=== PATIENT | female | born 1935 | race Caucasian/White ===

== ENCOUNTER 2016-12-24 15:17 | Inpatient (IN) | payer OTHER ==
[~2016-12-24] VITALS: Ht 162.6 cm; Wt 75.5 kg
[~2016-12-24 15:17] MED LIST: DIOVAN160 MG PO; ECOTRIN325 MG PO; INNOPRAN XL80 MG PO; NORVASC2.5 MG PO; TYLENOL WITH C1 EACH PO; VIACTIV SOFT C1 EACH PO; VITAMIN E400 UNIT PO; ZOLOFT25 MG PO
[2016-12-24 16:02] LABS: CREATININE 0.8 mg/dL (0.6-1.3); POTASSIUM 5.4 mEq/L (3.7-5.4)
[2016-12-24 16:20] LABS: EOSINOPHIL (%) 0.2 % (0-5); HEMATOCRIT 47.6 % (36.0-46.0); IMMATURE GRANULOCYTE (%) 0.8 % (0.0-0.7); IMMATURE GRANULOCYTE COUNT 0.2 K/uL; INSTRUMENT ABS NEUTROPHIL CT 19.8 K/uL; LYMPHOCYTE COUNT 1.4 K/uL (1.0-2.8); MCH 29.3 PG (29.0-34.0); MCHC 32.1 G/DL (30.0-36.0); MEAN PLAT.VOLUME 10.7 uM^3 (9.5-12.4); MONOCYTE COUNT 1.1 K/uL (0-0.8); NEUTROPHIL (%) 87.5 % (45-76); NEUTROPHIL COUNT 19.8 K/uL (1.8-6.4); NRBC (%) 0.1 /100 WBC (0-0); PLATELET COUNT 187 K/uL (156-360); RBC DIS.WIDTH-CV 13.2 % (11.8-14.6); RED BLOOD COUNT 5.23 M/uL (3.80-5.20); WHITE BLOOD COUNT 22.6 K/uL (4.1-10.2)
[2016-12-24 16:21] LABS: POINT-OF-CARE METER ID UU13113702
[2016-12-24 16:31] LABS: CHLORIDE 108 mEq/L (99-109); SODIUM 141 mEq/L (136-147)
[2016-12-24 16:33] LABS: BASE EXCESS -1.9 mEq/L (-3 to +3); BICARBONATE 24.7 mEq/L (22-26); CARBOXY HGB 2.2 % (0-5); METHEMOGLOBIN 1.4 % (0-1.5); PCO2 48 mm Hg (35-45); PO2 168 mm Hg (80-100); pH 7.32 (7.35-7.45)
[2016-12-24 16:33] LABS: GLUCOSE 139 mg/dL (70-99)
[2016-12-24 16:34] LABS: COMMENTS - BLOOD GASES A+C+; DEVICE 840; FI02 60 %; MODE SPONT; SITE RR; TOTAL RESP RATE 40 resp/min
[2016-12-24 16:34] LABS: ANION GAP 13 MEQ/L (2-14)
[2016-12-24 16:35] LABS: TOTAL BILIRUBIN 1.2 mg/dL (0.0-1.0)
[2016-12-24 16:35] LABS: PEEP 5 CM/H20; PRES. SUPPORT 12 CM/H2O
[2016-12-24 16:37] LABS: ALKALINE PHOSPHATASE 85 IU/L (3-129); GFR ESTIMATE (CALCULATED) > 59 mL/min/
[2016-12-24 16:38] LABS: UREA NITROGEN (BUN) 19 mg/dL (9-23)
[2016-12-24 16:41] LABS: TROP-I INTERPRETATION INDETERMINATE; TROPONIN-I 0.58 ng/mL (0.0-0.30)
[2016-12-24 16:45] LABS: POTASSIUM ND mEq/L (3.7-5.4)
[2016-12-24 17:21] LABS: POTASSIUM 4.4 mEq/L (3.7-5.4)
[2016-12-24 17:29] LABS: NO-CHARGE AST (GOT) 38 IU/L (2-34)
[2016-12-24 19:09] LABS: BASE EXCESS -1.5 mEq/L (-3 to +3); BICARBONATE 24.3 mEq/L (22-26); CARBOXY HGB 2.4 % (0-5); COMMENTS - BLOOD GASES A+C+; DEVICE NC; METHEMOGLOBIN 1.3 % (0-1.5); O2 FLOW 4 L/MIN; PCO2 44 mm Hg (35-45); PO2 74 mm Hg (80-100); SITE LR; TOTAL RESP RATE 30 resp/min; pH 7.35 (7.35-7.45)
[2016-12-24 20:09] LABS: ADD MIUA? YES; BILIRUBIN NEGATIVE; BLOOD MODERATE; COLOR YELLOW ((YELLOW)); GLUCOSE (STRIP) 50; KETONES 5; LEUKOCYTES NEGATIVE; NITRITE NEGATIVE; PROTEIN (STRIP) 100; SPECIFIC GRAVITY 1.011 (1.000-1.030); UROBILINOGEN 0.2 MG/DL (0.2-1.0)
[2016-12-24 20:16] LABS: BACTERIA NONE SEEN /HPF; EPITHELIAL CELLS RARE /HPF; GRANULAR CASTS 0-5 /LPF; MUCUS TRACE /LPF; RED BLOOD CELLS 15-20 /HPF (0-5); WHITE BLOOD CELLS 0-5 /HPF (0-5)
[2016-12-24 21:00] LABS: TROP-I INTERPRETATION POSITIVE; TROPONIN-I 1.45 ng/mL (0.0-0.30)
[2016-12-24 22:03] LABS: INTER. NORMALIZED RATIO 1.2; PROTHROMBIN TIME 12.9 SEC (10.2-12.9)
[2016-12-24 23:24] VITALS: BP 141/81
[2016-12-25] VITALS (23 sets, daily range): BP systolic 127–164; BP diastolic 52–107
[2016-12-25 00:44] LABS: METH RESISTANT S AUREUS PCR NEGATIVE (NEGATIVE)
[2016-12-25 00:48] LABS: PROBE CHECK PASS; SPECIMEN PROCESSING CONTROL PASS
[2016-12-25 05:29] LABS: BASE EXCESS -1.3 mEq/L (-3 to +3); BICARBONATE 23.7 mEq/L (22-26); CARBOXY HGB 2.4 % (0-5); COMMENTS - BLOOD GASES C+A+; DEVICE HHFNC; FI02 30 %; METHEMOGLOBIN 1.8 % (0-1.5); O2 FLOW 45 L/MIN; PCO2 40 mm Hg (35-45); PO2 103 mm Hg (80-100); SITE LR; TOTAL RESP RATE 28 resp/min; pH 7.38 (7.35-7.45)
[2016-12-25 05:33] LABS: INTER. NORMALIZED RATIO 1.4; PROTHROMBIN TIME 15.2 SEC (10.2-12.9)
[2016-12-25 05:52] LABS: PTT ND SEC (25-37)
[2016-12-25 06:05] LABS: TROP-I INTERPRETATION POSITIVE; TROPONIN-I 1.15 ng/mL (0.0-0.30)
[2016-12-25 06:06] LABS: HEMATOCRIT 40.9 % (36.0-46.0); MCH 29.8 PG (29.0-34.0); MCHC 32.8 G/DL (30.0-36.0); MCV 90.9 FL (83-99); NRBC (%) 0.1 /100 WBC (0-0); RBC DIS.WIDTH-CV 13.5 % (11.8-14.6); RBC DIS.WIDTH-SD 44.6 % (39-53); WHITE BLOOD COUNT 15.2 K/uL (4.1-10.2)
[2016-12-25 06:39] LABS: MEAN PLAT.VOLUME 10.3 uM^3 (9.5-12.4); PLAT.SUFFICIENCY DECREASED
[2016-12-25 06:46] LABS: PLATELET COUNT 129 K/uL (156-360)
[2016-12-25 07:34] LABS: ANION GAP 13 MEQ/L (2-14); CHLORIDE 107 MEQ/L (99-109); GFR ESTIMATE (CALCULATED) > 59 mL/min/; GLUCOSE 157 mg/dL (70-99); POTASSIUM 4.1 MEQ/L (3.7-5.4); SAMPLE HEMOLYSIS CHECK 0; SAMPLE ICTERIC CHECK 0; SAMPLE LIPEMIA CHECK 0; SODIUM 142 MEQ/L (136-147); UREA NITROGEN (BUN) 27 mg/dL (9-23)
[2016-12-25] MEDS ORDERED: SERTRALINE HCL25 MG PO (13:16)
[2016-12-25] MEDS ORDERED: VALSARTAN160 MG PO (13:16)
[2016-12-25] MEDS ORDERED: PROPRANOLOL HCL80 MG PO (13:16)
[2016-12-25] MEDS ORDERED: AMLODIPINE BES2.5 MG PO (13:16)
[2016-12-25] MEDS ORDERED: ATORVASTATIN CA20 MG PO (13:19)
[2016-12-25] MEDS ORDERED: VITAMIN E400 UNIT PO (13:20)
[2016-12-25] MEDS ORDERED: VIACTIV SOFT C1 EACH PO (13:20)
[2016-12-25] MEDS ORDERED: ECOTRIN325 MG PO (13:20)
[2016-12-25] MEDS ORDERED: ULTIMATE PROBI1 EACH PO (13:21)
[2016-12-25] MEDS ORDERED: SUPER B COMPLE1 EAC2 PO (13:21)
[2016-12-26] VITALS (23 sets, daily range): BP systolic 89–179; BP diastolic 49–146
[2016-12-26 07:38] LABS: MCH 30.3 PG (29.0-34.0); MCHC 33.7 G/DL (30.0-36.0); MEAN PLAT.VOLUME 11.2 uM^3 (9.5-12.4); PLATELET COUNT 117 K/uL (156-360); RBC DIS.WIDTH-CV 13.4 % (11.8-14.6); RBC DIS.WIDTH-SD 43.8 % (39-53); RED BLOOD COUNT 3.89 M/uL (3.80-5.20); WHITE BLOOD COUNT 18.7 K/uL (4.1-10.2)
[2016-12-26 07:47] LABS: INTER. NORMALIZED RATIO 1.2; PROTHROMBIN TIME 12.8 SEC (10.2-12.9)
[2016-12-26 07:50] LABS: PTT 74.5 SEC (25-37)
[2016-12-26 20:29] LABS: BASE EXCESS 3.3 mEq/L (-3 to +3); BICARBONATE 26.8 mEq/L (22-26); CARBOXY HGB 2.7 % (0-5); COMMENTS - BLOOD GASES A+C+; DEVICE NC; METHEMOGLOBIN 2.1 % (0-1.5); O2 FLOW 2 L/MIN; PCO2 36 mm Hg (35-45); PO2 52 mm Hg (80-100); SITE LR; TOTAL RESP RATE 24 resp/min; pH 7.48 (7.35-7.45)
[2016-12-26 20:49] LABS: ANION GAP 8 MEQ/L (2-14); CHLORIDE 104 MEQ/L (99-109); POTASSIUM 3.8 MEQ/L (3.7-5.4); SAMPLE HEMOLYSIS CHECK 0; SAMPLE ICTERIC CHECK 0; SAMPLE LIPEMIA CHECK 0; SODIUM 139 MEQ/L (136-147)
[2016-12-26 21:02] LABS: GFR ESTIMATE (CALCULATED) > 59 mL/min/; GLUCOSE 107 mg/dL (70-99); UREA NITROGEN (BUN) 15 mg/dL (9-23)
[2016-12-27] VITALS (15 sets, daily range): BP systolic 126–165; BP diastolic 66–88
[2016-12-28] VITALS: BP 137/67
[2016-12-28 04:24] VITALS: BP 132/67
[2016-12-28 07:46] VITALS: BP 141/66
[2016-12-28 11:28] VITALS: BP 166/78
[2016-12-28 19:53] VITALS: BP 142/75
[2016-12-29 00:50] VITALS: BP 164/77
[2016-12-29 03:40] VITALS: BP 179/81
[2016-12-29 05:59] LABS: HEMATOCRIT 37.8 % (36.0-46.0); MCH 28.6 PG (29.0-34.0); MCHC 32.3 G/DL (30.0-36.0); MCV 88.5 FL (83-99); MEAN PLAT.VOLUME 10.7 uM^3 (9.5-12.4); PLATELET COUNT 140 K/uL (156-360); RBC DIS.WIDTH-SD 41.7 % (39-53); RED BLOOD COUNT 4.27 M/uL (3.80-5.20); WHITE BLOOD COUNT 11.1 K/uL (4.1-10.2)
[2016-12-29 08:53] VITALS: BP 158/74
[2016-12-29 21:09] VITALS: BP 147/77
[2016-12-30] VITALS (7 sets, daily range): BP systolic 130–173; BP diastolic 66–86
[2016-12-30 06:08] LABS: EOSINOPHIL (%) 2.3 % (0-5); EOSINOPHIL COUNT 0.3 K/uL (0-0.3); IMMATURE GRANULOCYTE (%) 1.1 % (0.0-0.7); IMMATURE GRANULOCYTE COUNT 0.1 K/uL; INSTRUMENT ABS NEUTROPHIL CT 8.6 K/uL; LYMPHOCYTE COUNT 1.6 K/uL (1.0-2.8); MCHC 33.7 G/DL (30.0-36.0); MCV 89.1 FL (83-99); MEAN PLAT.VOLUME 10.9 uM^3 (9.5-12.4); MONOCYTE (%) 8.5 % (3-12); NEUTROPHIL (%) 74.1 % (45-76); NEUTROPHIL COUNT 8.6 K/uL (1.8-6.4); PLATELET COUNT 173 K/uL (156-360); RBC DIS.WIDTH-CV 13.2 % (11.8-14.6); RBC DIS.WIDTH-SD 42.5 % (39-53); RED BLOOD COUNT 3.93 M/uL (3.80-5.20); WHITE BLOOD COUNT 11.6 K/uL (4.1-10.2)
[2016-12-30 06:53] LABS: ALKALINE PHOSPHATASE 64 IU/L (3-129); ANION GAP 8 MEQ/L (2-14); CHLORIDE 103 MEQ/L (99-109); GFR ESTIMATE (CALCULATED) > 59 mL/min/; GLUCOSE 102 mg/dL (70-99); POTASSIUM 3.5 MEQ/L (3.7-5.4); SAMPLE HEMOLYSIS CHECK 0; SAMPLE ICTERIC CHECK 0; SAMPLE LIPEMIA CHECK 0; SODIUM 140 MEQ/L (136-147); TOTAL BILIRUBIN 0.9 MG/DL (0.0-1.0); UREA NITROGEN (BUN) 17 mg/dL (9-23)
[2016-12-30 12:10] LABS: MAGNESIUM 1.9 mg/dl (1.3-2.7)
[2016-12-31 04:53] VITALS: BP 159/70
[2016-12-31 06:15] LABS: EOSINOPHIL (%) 1.7 % (0-5); EOSINOPHIL COUNT 0.2 K/uL (0-0.3); HEMATOCRIT 33.6 % (36.0-46.0); IMMATURE GRANULOCYTE (%) 2.1 % (0.0-0.7); IMMATURE GRANULOCYTE COUNT 0.3 K/uL; INSTRUMENT ABS NEUTROPHIL CT 8.4 K/uL; LYMPHOCYTE COUNT 1.7 K/uL (1.0-2.8); MCH 30.2 PG (29.0-34.0); MCHC 33.9 G/DL (30.0-36.0); MCV 89.1 FL (83-99); MEAN PLAT.VOLUME 10.3 uM^3 (9.5-12.4); MONOCYTE (%) 9.4 % (3-12); MONOCYTE COUNT 1.1 K/uL (0-0.8); NEUTROPHIL (%) 71.6 % (45-76); NEUTROPHIL COUNT 8.4 K/uL (1.8-6.4); PLATELET COUNT 217 K/uL (156-360); RBC DIS.WIDTH-CV 13.4 % (11.8-14.6); RBC DIS.WIDTH-SD 43.2 % (39-53); RED BLOOD COUNT 3.77 M/uL (3.80-5.20); WHITE BLOOD COUNT 11.7 K/uL (4.1-10.2)
[2016-12-31 06:42] LABS: ANION GAP 8 MEQ/L (2-14); CHLORIDE 103 MEQ/L (99-109); GFR ESTIMATE (CALCULATED) > 59 mL/min/; GLUCOSE 106 mg/dL (70-99); POTASSIUM 3.9 MEQ/L (3.7-5.4); SAMPLE HEMOLYSIS CHECK 0; SAMPLE ICTERIC CHECK 0; SAMPLE LIPEMIA CHECK 0; SODIUM 139 MEQ/L (136-147); UREA NITROGEN (BUN) 18 mg/dL (9-23)
[2016-12-31 07:43] VITALS: BP 144/67
[2016-12-31] MEDS ORDERED: AUGMENTIN875 MG PO (09:27)
[2016-12-31] MEDS ORDERED: PROPRANOLOL HCL60 MG PO (09:28)
[2016-12-31] MEDS ORDERED: TRAMADOL HCL50 MG PO (09:29)
[2016-12-31] MEDS ORDERED: DUONEB 2.5-0.5 M3 ML PEP (09:29)
[2016-12-31 11:43] VITALS: BP 173/94
== END 2016-12-31 15:22 | DRG 177 ==
LOC: EME 15:17 → EDOF 20:18 → 4WEST 20:18 → ENRESERV 20:26 → EDOF 22:47 → 4WEST 23:15 → ENRESERV 12-27 16:31 → 4WEST 12-27 16:31 → ENRESERV 12-27 17:14 → 5SOUTH 12-27 19:14
PROVIDERS: Emergency Medicine; Hospitalist; Internal Medicine Critical Care Medicine; Internal Medicine Pulmonary Disease; Specialist
DX: J69.0 Pneumonitis due to inhalation of food and vomit (principal); J96.01 Acute respiratory failure with hypoxia; J44.1 Chronic obstructive pulmonary disease with (acute) exacerbation; I21.4 Non-ST elevation (NSTEMI) myocardial infarction; E78.5 Hyperlipidemia, unspecified; G30.9 Alzheimer's disease, unspecified; F02.80 Dementia in other diseases classified elsewhere, unspecified severity, without behavioral disturbance, psychotic disturbance, mood disturbance, and anxiety; G20 Parkinson's disease; I10 Essential (primary) hypertension; I47.1 Supraventricular tachycardia; F32.9 Major depressive disorder, single episode, unspecified; I73.9 Peripheral vascular disease, unspecified; F41.9 Anxiety disorder, unspecified; Z86.73 Personal history of transient ischemic attack (TIA), and cerebral infarction without residual deficits; Z88.2 Allergy status to sulfonamides; Z91.041 Radiographic dye allergy status
CPT/HCPCS: 36600; 70450; 71010; 73522; 78582; 80047; 80048; 80053; 81003; 82140; 82803; 82948; 83735; 83880; 84484; 84999; 85025; 85027; 85610; 85730; 87040; 87641; 92526 GN; 92610 GN; 93005; 93306; 94002; 94010; 94640; 94640 76; 94760; 94799; 97530 GP; 99202; 99281; 99285; A9540; A9567; J0295; J0456; J1644; J2930; J3475; J7030; J7050; S0028